=== PATIENT | male | born 1965 | race Hispanic/Latino ===

== ENCOUNTER → 2018-08-12 | Outpatient (CLI) | payer MEDICAID | END | disposition home or self-care (01) | LOC: RAH 12:22 | PROVIDERS: ATTEND Internal Medicine | DX: M25.78 Osteophyte, vertebrae (principal); M54.5 Low back pain | CPT/HCPCS: 72100 ==

== ENCOUNTER 2018-08-29 16:47 | Inpatient (IN) | payer MEDICAID ==
[~2018-08-29] VITALS: Ht 165.1 cm; Wt 62.7 kg
[2018-08-29 18:09] LABS: BASOPHILS % (AUTO) 0.9 % (0.0-5.0); EOSINOPHILS % (AUTO) 12.9 % (0.0-8.0); HEMATOCRIT 36.4 % (42-54); LYMPHOCYTES % (AUTO) 34.1 % (21.0-51.0); MEAN CORPUSCULAR HEMOGLOBIN 35.7 pg (27.0-33.0); MEAN CORPUSCULAR HGB CONC 33.9 g/dL (32.0-36.0); MEAN CORPUSCULAR VOLUME 105.4 fL (79-99); MONOCYTES % (AUTO) 8.8 % (3.0-13.0); NEUTROPHILS % (AUTO) 43.3 % (40.0-77.0); NUCLEATED RED BLOOD CELLS 0.1 % (0.0-0.19); PLATELET COUNT (AUTO) 71 K/uL (130-400); RED BLOOD CELL COUNT(AUTO) 3.46 MIL/uL (4.50-6.20); RED CELL DISTRIBUTION WIDTH 15.1 % (11.0-15.5); WHITE BLOOD COUNT (AUTO) 5.1 K/uL (4.8-10.8)
[2018-08-29 18:22] LABS: CREATININE 0.9 mg/dL (0.5-1.5); POTASSIUM 4.1 mmol/L (3.5-5.1)
[2018-08-29] MEDS ORDERED: LACTULOSE 20 GM/30 ML UDCUP ONE (19:18)
[2018-08-29] MEDS: LACTATED RINGERS 1000ML 1,000 ML IV SCH (21:00)
[2018-08-29] MEDS ORDERED: LACTULOSE 20 GM/30 ML UDCUP PO PRN (21:00)
[2018-08-29] MEDS ORDERED: ACETAMINOPHEN 325 MG TAB PO PRN (21:00)
[2018-08-29] MEDS ORDERED: ONDANSETRON HCL 4 MG/2 ML VIAL IVP PRN (21:00)
[2018-08-30 01:30] VITALS: BP 118/75
[2018-08-30] MEDS ORDERED: LEVE750T51 PO (01:37)
[2018-08-30] MEDS ORDERED: CLOP75TA32 PO (01:37)
[2018-08-30] MEDS ORDERED: ASPI-891 PO (01:37)
[2018-08-30] MEDS ORDERED: ESCI10TA54 PO (01:37)
[2018-08-30 04:00] VITALS: BP 116/70
[2018-08-30 05:28] LABS: HEMATOCRIT 31.7 % (42-54); MEAN CORPUSCULAR HEMOGLOBIN 36.9 pg (27.0-33.0); MEAN CORPUSCULAR HGB CONC 35.3 g/dL (32.0-36.0); MEAN CORPUSCULAR VOLUME 104.7 fL (79-99); NUCLEATED RED BLOOD CELLS 0.1 % (0.0-0.19); PLATELET COUNT (AUTO) 78 K/uL (130-400); RED BLOOD CELL COUNT(AUTO) 3.02 MIL/uL (4.50-6.20); RED CELL DISTRIBUTION WIDTH 14.8 % (11.0-15.5)
[2018-08-30 05:37] LABS: BILIRUBIN,TOTAL 1.7 mg/dL (0.2-1.0); CREATININE 0.8 mg/dL (0.5-1.5); POTASSIUM 3.9 mmol/L (3.5-5.1); TOTAL PROTEIN, SERUM 6.6 g/dL (6.0-8.3)
[2018-08-30 05:47] LABS: BASOPHILS % (MANUAL) 1 % (0-2); EOSINOPHILS % (MANUAL) 9 % (1-6); LYMPHOCYTES % (MANUAL) 32 % (22-44); MAN.DIFF COMMENT-IMPRESSION MANUAL DIFFERENTIAL; MONOCYTES % (MANUAL) 8 % (2-9); SEGMENTED NEUTROPHILS % 50 % (40-70)
[2018-08-30] MEDS ORDERED: LORAZEPAM 2 MG/ML 1 ML VIAL IVP PRN (06:45)
[2018-08-30] MEDS ORDERED: ONDANSETRON HCL 4 MG/2 ML VIAL IV PRN (06:45)
[2018-08-30] MEDS ORDERED: CHLORDIAZEPOXIDE HCL 25 MG CAP PO PRN (06:45)
[2018-08-30] MEDS ORDERED: ACETAMINOPHEN EXTRA STRENGTH 500 MG TABLET PO PRN (06:45)
[2018-08-30] MEDS ORDERED: PROMETHAZINE HCL 25 MG TABLET PO PRN (06:45)
[2018-08-30 08:15] LABS: ALCOHOL, BLOOD < 3 mg/dL (0-10); PHOSPHORUS 3.2 mg/dL (2.5-4.9)
[2018-08-30] MEDS: FOLIC ACID 1 MG TABLET PO SCH (08:48)
[2018-08-30] MEDS: MULTIVITAMIN TABLET PO SCH (08:48)
[2018-08-30] MEDS: THIAMINE HCL 100 MG/ML 2ML VIAL IM SCH (08:48)
[2018-08-30 08:53] VITALS: BP 107/72
[2018-08-30] MEDS ORDERED: POTASSIUM CHLORIDE 20MEQ/100ML 100 ML IV PRN (12:00)
[2018-08-30] MEDS ORDERED: POTASSIUM CHLORIDE 10% ELIXIR 20 MEQ/15 ML UDCUP PO PRN (12:00)
[2018-08-30] MEDS ORDERED: LIDOCAINE HCL-MPF 1% 2ML VIAL IVP PRN (12:00)
[2018-08-30] MEDS ORDERED: POTASSIUM CHLORIDE 20 MEQ ERTAB PO PRN (12:00)
[2018-08-30] MEDS ORDERED: MAGNESIUM 2GM PREMIX 50ML 50 ML IV SCH (12:00)
[2018-08-30 12:19] VITALS: BP 113/75
[2018-08-30] MEDS: LACTULOSE 20 GM/30 ML UDCUP PO SCH ×2 (14:11→21:02)
[2018-08-30] MEDS: LIDOCAINE 5% TOPICAL PATCH TP SCH (15:54)
[2018-08-30 16:49] VITALS: BP 123/75
[2018-08-30 19:00] VITALS: BP 107/63
[2018-08-30] MEDS: LACTATED RINGERS 1000ML 1,000 ML IV SCH (20:56)
[2018-08-30] MEDS: LEVETIRACETAM 500 MG TABLET PO SCH (21:02)
[2018-08-31] VITALS (21 sets, daily range): BP systolic 106–143; BP diastolic 60–91
[2018-08-31] MEDS: LACTULOSE 20 GM/30 ML UDCUP PO SCH ×4 (02:53→18:30)
[2018-08-31] MEDS: LACTATED RINGERS 1000ML 1,000 ML IV SCH ×3 (05:00→22:04)
[2018-08-31 05:03] LABS: BASOPHILS % (AUTO) 1.3 % (0.0-5.0); EOSINOPHILS % (AUTO) 12.4 % (0.0-8.0); HEMATOCRIT 32.7 % (42-54); LYMPHOCYTES % (AUTO) 34.2 % (21.0-51.0); MEAN CORPUSCULAR HEMOGLOBIN 35.6 pg (27.0-33.0); MEAN CORPUSCULAR HGB CONC 33.8 g/dL (32.0-36.0); MEAN CORPUSCULAR VOLUME 105.1 fL (79-99); MONOCYTES % (AUTO) 10.6 % (3.0-13.0); NEUTROPHILS % (AUTO) 41.5 % (40.0-77.0); NUCLEATED RED BLOOD CELLS 0.1 % (0.0-0.19); PLATELET COUNT (AUTO) 70 K/uL (130-400); RED BLOOD CELL COUNT(AUTO) 3.11 MIL/uL (4.50-6.20); RED CELL DISTRIBUTION WIDTH 14.9 % (11.0-15.5); WHITE BLOOD COUNT (AUTO) 5.3 K/uL (4.8-10.8)
[2018-08-31 05:17] LABS: CREATININE 0.9 mg/dL (0.5-1.5); MAGNESIUM 1.8 mg/dL (1.80-2.40); POTASSIUM 3.8 mmol/L (3.5-5.1)
[2018-08-31] MEDS: LIDOCAINE 5% TOPICAL PATCH TP SCH (09:00)
[2018-08-31] MEDS: MULTIVITAMIN TABLET PO SCH (09:00)
[2018-08-31] MEDS: FOLIC ACID 1 MG TABLET PO SCH (09:00)
[2018-08-31] MEDS ORDERED: KETOROLAC TROMETHAMINE 15MG/ML IM PRN (10:00)
[2018-08-31] MEDS: CITALOPRAM 20 MG TABLET PO SCH (10:08)
[2018-08-31] MEDS: M.V.I. IV [ADULT] 10 ML, FOLIC ACID 1 MG, THIAMINE HCL 100 MG in SODIUM CHLORIDE 0.9% 1... IV SCH (10:31)
[2018-08-31] MEDS: THIAMINE HCL 100 MG/ML 2ML VIAL IM SCH (10:31)
[2018-08-31 10:33] LABS: INR 1.23 (0.85-1.15); PARTIAL THROMBOPLASTIN TIME 30.3 SEC (26.3-35.5); PROTHROMBIN TIME 12.9 SEC (9.6-11.6)
[2018-08-31] MEDS: LEVETIRACETAM 500 MG TABLET PO SCH ×2 (10:36→22:04)
[2018-08-31] MEDS ORDERED: SODIUM CHLORIDE 0.9% 1000ML 1,000 ML IV ONE (11:56)
[2018-08-31] MEDS ORDERED: PROPOFOL 10 MG/ML 20ML VIAL IV ONE ×2 (14:05)
[2018-08-31] MEDS ORDERED: PEG 3350/NA SULF,BICARB,CL/KCL 4000 ML SOLN PO ONE (18:30)
[2018-08-31] MEDS ORDERED: MAGNESIUM CITRATE 296 ML SOLUTION PO ONE (18:30)
[2018-09-01] VITALS (25 sets, daily range): BP systolic 85–136; BP diastolic 48–89
[2018-09-01] MEDS: LACTULOSE 20 GM/30 ML UDCUP PO SCH ×4 (02:50→20:47)
[2018-09-01 04:59] LABS: BASOPHILS % (AUTO) 1.5 % (0.0-5.0); EOSINOPHILS % (AUTO) 12.6 % (0.0-8.0); LYMPHOCYTES % (AUTO) 33.8 % (21.0-51.0); MEAN CORPUSCULAR HEMOGLOBIN 37.1 pg (27.0-33.0); MEAN CORPUSCULAR HGB CONC 35.6 g/dL (32.0-36.0); MEAN CORPUSCULAR VOLUME 104.2 fL (79-99); MONOCYTES % (AUTO) 9.1 % (3.0-13.0); NUCLEATED RED BLOOD CELLS 0.2 % (0.0-0.19); PLATELET COUNT (AUTO) 85 K/uL (130-400); RED BLOOD CELL COUNT(AUTO) 2.97 MIL/uL (4.50-6.20); RED CELL DISTRIBUTION WIDTH 14.6 % (11.0-15.5); WHITE BLOOD COUNT (AUTO) 5.5 K/uL (4.8-10.8)
[2018-09-01] MEDS: LACTATED RINGERS 1000ML 1,000 ML IV SCH (05:08)
[2018-09-01 05:11] LABS: CREATININE 0.7 mg/dL (0.5-1.5); POTASSIUM 3.5 mmol/L (3.5-5.1)
[2018-09-01] MEDS: THIAMINE HCL 100 MG/ML 2ML VIAL IM SCH (09:59)
[2018-09-01] MEDS: PANTOPRAZOLE SODIUM 40 MG TABLET.DR PO SCH (10:02)
[2018-09-01] MEDS: FOLIC ACID 1 MG TABLET PO SCH (10:02)
[2018-09-01] MEDS: MULTIVITAMIN TABLET PO SCH (10:03)
[2018-09-01] MEDS: LEVETIRACETAM 500 MG TABLET PO SCH ×2 (10:03→20:47)
[2018-09-01] MEDS: CITALOPRAM 20 MG TABLET PO SCH (10:04)
[2018-09-01] MEDS: LIDOCAINE 5% TOPICAL PATCH TP SCH (10:05)
[2018-09-01] MEDS: M.V.I. IV [ADULT] 10 ML, FOLIC ACID 1 MG, THIAMINE HCL 100 MG in SODIUM CHLORIDE 0.9% 1... IV SCH (10:57)
[2018-09-01] MEDS ORDERED: SODIUM CHLORIDE 0.9% 1000ML 1,000 ML IV ONE (17:27)
[2018-09-01] MEDS ORDERED: PROPOFOL 10 MG/ML 20ML VIAL IV ONE (19:27)
[2018-09-02 00:25] VITALS: BP 120/76
[2018-09-02 01:25] VITALS: BP 114/79
[2018-09-02] MEDS: LACTULOSE 20 GM/30 ML UDCUP PO SCH ×2 (02:55→12:59)
[2018-09-02 03:05] VITALS: BP 134/76
[2018-09-02 07:00] VITALS: BP 108/73
[2018-09-02] MEDS: CALCITONIN 3.7 ML AEROSOL NS SCH ×2 (09:00→13:00)
[2018-09-02] MEDS: CITALOPRAM 20 MG TABLET PO SCH (09:22)
[2018-09-02] MEDS: MULTIVITAMIN TABLET PO SCH (09:22)
[2018-09-02] MEDS: LEVETIRACETAM 500 MG TABLET PO SCH (09:22)
[2018-09-02] MEDS: PANTOPRAZOLE SODIUM 40 MG TABLET.DR PO SCH (09:22)
[2018-09-02] MEDS: LIDOCAINE 5% TOPICAL PATCH TP SCH (09:23)
[2018-09-02 11:36] VITALS: BP 110/70
[2018-09-02] MEDS: M.V.I. IV [ADULT] 10 ML, FOLIC ACID 1 MG, THIAMINE HCL 100 MG in SODIUM CHLORIDE 0.9% 1... IV SCH (12:57)
[2018-09-02 15:00] VITALS: BP 122/79
== END 2018-09-02 16:45 | disposition home or self-care (01) | DRG 279 ==
LOC: EDH 16:47 → EDHIP 16:48 → 3AH 08-30 01:23
PROVIDERS: ADMIT Hospitalist; ATTEND Hospitalist
PROC: 0DJ08ZZ Inspection of Upper Intestinal Tract, Via Natural or Artificial Opening Endoscopic (ICD-10-PCS; 2018-08-31)
PROC: 0DBH8ZZ Excision of Cecum, Via Natural or Artificial Opening Endoscopic (ICD-10-PCS; principal; 2018-09-01)
DX: K72.90 Hepatic failure, unspecified without coma (principal); D69.6 Thrombocytopenia, unspecified; D89.9 Disorder involving the immune mechanism, unspecified; I85.00 Esophageal varices without bleeding; E44.1 Mild protein-calorie malnutrition; M48.56XA Collapsed vertebra, not elsewhere classified, lumbar region, initial encounter for fracture; R18.8 Other ascites; D64.9 Anemia, unspecified; G40.909 Epilepsy, unspecified, not intractable, without status epilepticus; K74.60 Unspecified cirrhosis of liver; M47.812 Spondylosis without myelopathy or radiculopathy, cervical region; R29.6 Repeated falls; K29.00 Acute gastritis without bleeding; B19.20 Unspecified viral hepatitis C without hepatic coma; F10.10 Alcohol abuse, uncomplicated; M47.816 Spondylosis without myelopathy or radiculopathy, lumbar region; K76.0 Fatty (change of) liver, not elsewhere classified; K74.0 Hepatic fibrosis; K64.0 First degree hemorrhoids; D12.0 Benign neoplasm of cecum; D50.9 Iron deficiency anemia, unspecified; K76.6 Portal hypertension; K31.89 Other diseases of stomach and duodenum; Z86.73 Personal history of transient ischemic attack (TIA), and cerebral infarction without residual deficits; Z82.49 Family history of ischemic heart disease and other diseases of the circulatory system
CPT/HCPCS: 36415; 43244; 45380; 70450; 70551; 71045; 72125; 72128; 72131; 76705; 80048; 80053; 80177; 82140; 82270; 82607; 83735; 84100; 84484; 85025; 85610; 85730; 88305; 93005; 97039; G0480; J2704; J3411; J3475; J3490; J7030; J7120

== ENCOUNTER 2019-07-21 14:33 | Emergency (ER) | payer MEDICAID ==
[~2019-07-21 14:33] MED LIST: ASPI-891 PO; CLOP75TA32 PO; ESCI10TA54 PO; LEVE750T66 PO
[2019-07-21 15:21] LABS: BASOPHILS % (AUTO) 0.7 % (0.0-5.0); EOSINOPHILS % (AUTO) 9.2 % (0.0-8.0); HEMATOCRIT 36.6 % (42-54); MEAN CORPUSCULAR HEMOGLOBIN 35.2 pg (27.0-33.0); MEAN CORPUSCULAR HGB CONC 34.9 g/dL (32.0-36.0); MEAN CORPUSCULAR VOLUME 100.7 fL (79-99); MONOCYTES % (AUTO) 9.3 % (3.0-13.0); NEUTROPHILS % (AUTO) 49.8 % (40.0-77.0); NUCLEATED RED BLOOD CELLS 0.1 % (0.0-0.19); PLATELET COUNT (AUTO) 119 K/uL (130-400); RED BLOOD CELL COUNT(AUTO) 3.63 MIL/uL (4.50-6.20); RED CELL DISTRIBUTION WIDTH 13.7 % (11.0-15.5); WHITE BLOOD COUNT (AUTO) 4.3 K/uL (4.8-10.8)
[2019-07-21 15:33] LABS: INR 1.19 (0.85-1.15); PARTIAL THROMBOPLASTIN TIME 27.5 SEC (26.3-35.5); PROTHROMBIN TIME 12.5 SEC (9.6-11.6)
[2019-07-21 15:44] LABS: CREATININE 0.9 mg/dL (0.5-1.5); POTASSIUM 3.8 mmol/L (3.5-5.1)
[2019-07-21] MEDS ORDERED: ONDANSETRON HCL 4 MG/2 ML VIAL ONE (15:44)
[2019-07-21] MEDS ORDERED: DICYCLOMINE HCL 10 MG/ML 2ML AMP IM ONE (15:44)
[2019-07-21] MEDS ORDERED: FUROSEMIDE 10 MG/ML 2ML VIAL ONE (15:44)
[2019-07-21] MEDS ORDERED: MORPHINE SULFATE 2 MG/ML 1ML SYG ONE (15:44)
[2019-07-21 15:45] LABS: ALBUMIN 2.5 g/dL (3.5-5.0); BILIRUBIN,TOTAL 1.7 mg/dL (0.2-1.0); TOTAL PROTEIN, SERUM 6.8 g/dL (6.0-8.3)
[2019-07-21 16:49] LABS: PLATELET MORPHOLOGY COMMENT SLIGHTLY DECREASED
== END 2019-07-21 16:22 | disposition home or self-care (01) ==
LOC: EDH 14:33
DX: R18.8 Other ascites (principal); F10.20 Alcohol dependence, uncomplicated; Z87.891 Personal history of nicotine dependence
CPT/HCPCS: 36415; 80053; 82140; 85025; 85610; 85730; 96372; 96374; 96375; 99284; J0500; J1940; J2405

== ENCOUNTER → 2019-07-24 | Outpatient (CLI) | payer MEDICAID ==
[~2019-07-24] MED LIST changes: +ALBUMIN (HUMAN) 25% 200 ML IV ONE
[2019-07-24 08:52] LABS: INR 1.2 (0.85-1.15); PARTIAL THROMBOPLASTIN TIME 27.3 SEC (26.3-35.5); PROTHROMBIN TIME 12.6 SEC (9.6-11.6)
--- NOTE | 2019-07-24 09:45 | NUR ---
U/S GD PARACENTESIS PROCEDURE PERFORMED BY DR Aaliyah FONTENOT. PUNCTURE SITE RLQ AND PATIENT TOLERATED PROCEDURE WELL. TOTAL REMOVED 7 LITERS OF CLOUDY YELLOW FLUID. ALBUMIN 25% 50 GRAMS IV GIVEN DURING PROCEDURE. SPECIMEN SENT TO LAB. END OF PROCEDURE AT 0915. CATHETER REMOVED AND DRESSING APPLIED. NO BLEEDING NOTED. DISCHARGE INSTRUCTIONS GIVEN TO PATIENT AND VERBALIZED UNDERSTANDING. DISCHARGED VIA AMBLATION AT 0945. AAO X3 WITH NO C/O PAIN.
[2019-07-24 14:31] LABS: AMYLASE,BODY FLUID 15 U/L; TRIGLYCERIDES,BODY FLUID 24 mg/dL
[2019-07-24 17:20] LABS: APPEARANCE BODY FLUID CLEAR (CLEAR); COLOR,BODY FLUID LT YELLOW (LT YELLOW); SPECIMENTYPE,BODY FLUID ASCITES; TOTAL VOLUME,BODY FLUID 7000 mL
[2019-07-24 17:21] LABS: BODY FLUID RBC 20 /cu. mm.; BODY FLUID WBC 35 /cu. mm.
[2019-07-24 18:37] LABS: BF EOSINOPHIL 1 %; BF LYMPHOCYTE 18 %; BF MONOCYTE 8 %; BF OTHER CELLS 5
== END | disposition home or self-care (01) ==
LOC: RAH 07:47
PROVIDERS: ATTEND Internal Medicine
DX: R18.8 Other ascites (principal); Z79.82 Long term (current) use of aspirin; Z79.899 Other long term (current) drug therapy; Z72.89 Other problems related to lifestyle
CPT/HCPCS: 36415; 49083; 82040; 82042; 82150; 84157; 84478; 85610; 85730; 87071; 87116; 87205; 87206; 88108; 88305; 89051; 96365; A4215; P9046

== ENCOUNTER → 2019-07-29 | Outpatient (CLI) | payer MEDICAID ==
[~2019-07-29] MED LIST changes: -ALBUMIN (HUMAN) 25% 200 ML IV ONE
== END | disposition home or self-care (01) ==
LOC: RAH 09:25
PROVIDERS: ATTEND Internal Medicine Gastroenterology
DX: K74.60 Unspecified cirrhosis of liver (principal); R16.1 Splenomegaly, not elsewhere classified; R18.8 Other ascites
CPT/HCPCS: 76700; 93975

== ENCOUNTER → 2019-08-24 | Outpatient (CLI) | payer MEDICAID ==
[~2019-08-24] VITALS: Ht 170.2 cm; Wt 59.9 kg
[~2019-08-24] MED LIST changes: +ALBUMIN (HUMAN) 25% 200 ML IV ONE; +ALBUMIN (HUMAN) 25% 200 ML IV SCH
--- NOTE | 2019-08-24 09:30 | NUR ---
U/S GD PARACENTESIS PROCEDURE PERFORMED BY DR Enrique GIBBS. PUNCTURE SITE LLQ AND PATIENT TOLERATED PROCEDURE WELL. TOTAL REMOVED 8.3 LITERS OF CLOUDY YELLOW FLUID. ALBUMIN 25% 50 GRAMS IV GIVEN DURING PROCEDURE. SPECIMEN SENT TO LAB. END OF PROCEDURE AT 0850. CATHETER REMOVED AND DRESSING APPLIED. NO BLEEDING NOTED. DISCHARGE INSTRUCTIONS GIVEN TO PATIENT AND VERBALIZED UNDERSTANDING. DISCHARGED VIA AMBULATION AT 0930. AAO X3 WITH NO C/O PAIN.
[2019-08-24 13:40] LABS: APPEARANCE BODY FLUID CLEAR (CLEAR); BODY FLUID WBC 47 /cu. mm.; COLOR,BODY FLUID YELLOW (LT YELLOW); SPECIMENTYPE,BODY FLUID ASCITES; TOTAL VOLUME,BODY FLUID 8200 mL
[2019-08-24 13:41] LABS: BODY FLUID RBC 11 /cu. mm.
[2019-08-24 13:51] LABS: BF LYMPHOCYTE 35 %; BF MESOTHELIAL 26 %; BF MONOCYTE 22 %
== END ==
LOC: RAH 08:00
PROVIDERS: ATTEND Internal Medicine
DX: R18.8 Other ascites (principal); K74.60 Unspecified cirrhosis of liver; Z79.82 Long term (current) use of aspirin; Z79.899 Other long term (current) drug therapy; Z72.89 Other problems related to lifestyle
CPT/HCPCS: 49083; 87071; 87205; 89051; 96365; A4215; P9046

== ENCOUNTER → 2019-09-17 | Outpatient (CLI) | payer MEDICAID ==
[~2019-09-17] MED LIST changes: -ALBUMIN (HUMAN) 25% 200 ML IV SCH
--- NOTE | 2019-09-17 09:30 | NUR ---
U/S GD PARACENTESIS PROCEDURE PERFORMED BY DR Diane BANAD. PUNCTURE SITE LLQ AND PATIENT TOLERATED PROCEDURE WELL. TOTAL REMOVED 7 LITERS OF CLOUDY YELLOW FLUID. ALBUMIN 25% 50 GRAMS IV GIVEN DURING PROCEDURE. SPECIMEN SENT TO LAB. END OF PROCEDURE AT 0900. CATHETER REMOVED AND DRESSING APPLIED. NO BLEEDING NOTED. DISCHARGE INSTRUCTIONS GIVEN TO PATIENT AND VERBALIZED UNDERSTANDING. DISCHARGED VIA AMBULATION AT 0930. AAO X3 WITH NO C/O PAIN.
[2019-09-17 13:46] LABS: APPEARANCE BODY FLUID CLEAR (CLEAR); BODY FLUID WBC 50 /cu. mm.; COLOR,BODY FLUID YELLOW (LT YELLOW); SPECIMENTYPE,BODY FLUID ASCITES; TOTAL VOLUME,BODY FLUID 7000 mL
[2019-09-17 13:47] LABS: BODY FLUID RBC 87 /cu. mm.
[2019-09-17 13:52] LABS: BF EOSINOPHIL 1 %; BF LYMPHOCYTE 19 %; BF MESOTHELIAL 57 %; BF MONOCYTE 16 %
== END ==
LOC: RAH 07:36
PROVIDERS: ATTEND Internal Medicine
DX: R18.8 Other ascites (principal); K74.60 Unspecified cirrhosis of liver; Z79.82 Long term (current) use of aspirin; Z79.899 Other long term (current) drug therapy; Z72.89 Other problems related to lifestyle
CPT/HCPCS: 49083; 87071; 87205; 89051; 96365; A4215; P9046

== ENCOUNTER → 2019-10-07 | Outpatient (CLI) | payer MEDICAID ==
[~2019-10-07] MED LIST changes: -ALBUMIN (HUMAN) 25% 200 ML IV ONE; +ALBUMIN (HUMAN) 25% 200 ML IV SCH
--- NOTE | 2019-10-07 08:50 | NUR ---
U/S GD PARACENTESIS PROCEDURE PERFORMED BY DR. ACOSTA. PUNCTURE SITE RIGHT LOWER QUADRANT OF ABDOMEN AND PATIENT TOLERATED PROCEDURE WELL. TOTAL REMOVED 6.8 LITERS OF CLOUDY YELLOW ASCITES FLUID. END OF PROCEDURE AT 0930. CATHETER REMOVED AND DRESSING APPLIED. NO BLEEDING NOTED. ALBUMIN 25% 50 GRAMS GIVEN DURING PROCEDURE PER [facility] [place]. DISCHARGE INSTRUCTIONS GIVEN TO PATIENT. PATIENT VERBALIZED UNDERSTANDING. PT DISCHARGED VIA W/C, STABLE, AAO X3 WITH NO C/O PAIN. SPECIMEN SENT TO LAB.
[2019-10-07 08:51] LABS: INR 1.19 (0.85-1.15); PARTIAL THROMBOPLASTIN TIME 28.4 SEC (26.3-35.5); PROTHROMBIN TIME 12.4 SEC (9.6-11.6)
[2019-10-07 16:44] LABS: APPEARANCE BODY FLUID CLEAR (CLEAR); BODY FLUID WBC 27 /cu. mm.; COLOR,BODY FLUID YELLOW (LT YELLOW); SPECIMENTYPE,BODY FLUID ASCITES; TOTAL VOLUME,BODY FLUID 6800 mL
[2019-10-07 16:45] LABS: BODY FLUID RBC 80 /cu. mm.
[2019-10-07 17:10] LABS: BF EOSINOPHIL 4 %; BF LYMPHOCYTE 45 %; BF MESOTHELIAL 20 %; BF MONOCYTE 15 %
== END | disposition home or self-care (01) ==
LOC: RAH 07:22
PROVIDERS: ATTEND Internal Medicine
DX: R18.8 Other ascites (principal); K74.60 Unspecified cirrhosis of liver; Z79.82 Long term (current) use of aspirin; Z79.899 Other long term (current) drug therapy
CPT/HCPCS: 36415; 49083; 85610; 85730; 87071; 87205; 89051; 96365; A4215; P9046

== ENCOUNTER → 2019-10-30 | Outpatient (CLI) | payer MEDICAID ==
[~2019-10-30] MED LIST changes: +ALBUMIN (HUMAN) 25% 200 ML IV PRN; -ALBUMIN (HUMAN) 25% 200 ML IV SCH
--- NOTE | 2019-10-30 09:00 | NUR ---
U/S GD PARACENTESIS PROCEDURE PERFORMED BY DR. OVIEDO. PUNCTURE SITE LEFT LOWER QUADRANT OF ABDOMEN AND PATIENT TOLERATED PROCEDURE WELL. TOTAL REMOVED 6 LITERS OF CLOUDY YELLOW ASCITES FLUID. END OF PROCEDURE AT 0830. CATHETER REMOVED AND DRESSING APPLIED. NO BLEEDING NOTED. ALBUMIN 25% 50 GRAMS GIVEN DURING PROCEDURE PER [facility] [place] ALBUMIN PROTOCOL. DISCHARGE INSTRUCTIONS GIVEN TO PATIENT. PATIENT VERBALIZED UNDERSTANDING. PT DISCHARGED VIA W/C, STABLE, AAO X3 WITH C/O ABDOMINAL CRAMPING. WARM COMPRESS APPLIED AND SPECIMEN SENT TO LAB.
[2019-10-30 14:12] LABS: BF LYMPHOCYTE 33 %; BF MESOTHELIAL 34 %; BF MONOCYTE 19 %
[2019-10-30 14:17] LABS: APPEARANCE BODY FLUID CLEAR (CLEAR); BODY FLUID RBC 235 /cu. mm.; BODY FLUID WBC 36 /cu. mm.; COLOR,BODY FLUID YELLOW (LT YELLOW); SPECIMENTYPE,BODY FLUID ASCITES; TOTAL VOLUME,BODY FLUID 6000 mL
== END ==
LOC: RAH 07:52
PROVIDERS: ATTEND Internal Medicine
DX: R18.8 Other ascites (principal); K74.60 Unspecified cirrhosis of liver; Z79.82 Long term (current) use of aspirin; Z79.899 Other long term (current) drug therapy; Z72.89 Other problems related to lifestyle
CPT/HCPCS: 49083; 87071; 87205; 89051; 96365; A4215; P9046

== ENCOUNTER → 2019-11-30 | Outpatient (CLI) | payer MEDICAID ==
[~2019-11-30] MED LIST changes: -ALBUMIN (HUMAN) 25% 200 ML IV PRN; +CEPH-577 PO; +CHOL100046 PO; +CITA-107 PO; +DICY10CA13 PO; +LACT20PA6 PO; +LEVE750T10 PO; +MIDO10TA PO; +PROP10TA10 PO; +SPIR25TA6 PO; +VITA1CAP85 PO
== END | disposition home or self-care (01) ==
LOC: SHCH 13:57
PROVIDERS: ATTEND Internal Medicine Cardiovascular Disease
DX: R00.1 Bradycardia, unspecified (principal)
CPT/HCPCS: 93306; 93356

== ENCOUNTER 2020-01-05 08:22 | Day surgery (SDC) | payer MEDICAID ==
[~2020-01-05] VITALS: Ht 165.1 cm; Wt 54.9 kg
[2020-01-05] VITALS (11 sets, daily range): BP systolic 71–129; BP diastolic 52–75
[~2020-01-05 08:22] MED LIST changes: -ASPI-891 PO; -CEPH-577 PO; -ESCI10TA54 PO; -LEVE750T66 PO; -PROP10TA10 PO; +SODIUM CHLORIDE 0.9% 1000ML 1,000 ML IV ONE; -SPIR25TA6 PO
[2020-01-05] MEDS ORDERED: PROPOFOL 10 MG/ML 20ML VIAL IV ONE (10:58)
--- NOTE | 2020-01-05 11:15 | NUR ---
PT NOT WAKING UP, LOW BP. SLADE ESTRADA NOTIFIED, ORDERS GIVEN FOR EPHEDRINE SULFATE. SLADE WOOTEN TO ASSIST WITH PT, ORDERS GIVEN FROM SLADE WOOTEN TO GIVE NS BOLUS, 300ML. Addendum: 01/05/20 at 1141 by FANI WELLS RN RN Amended: Links added.
[2020-01-05] MEDS ORDERED: EPHEDRINE SULFATE 50 MG/ML AMPULE ONE (11:20)
== END 2020-01-05 11:55 | disposition home or self-care (01) ==
LOC: ENDO 08:22 → DAH 08:22 → ENDO 11:55
PROVIDERS: ATTEND Internal Medicine Gastroenterology
DX: K21.9 Gastro-esophageal reflux disease without esophagitis (principal); I85.10 Secondary esophageal varices without bleeding; K74.69 Other cirrhosis of liver; K31.89 Other diseases of stomach and duodenum; R18.8 Other ascites; B18.2 Chronic viral hepatitis C; K44.0 Diaphragmatic hernia with obstruction, without gangrene; K42.9 Umbilical hernia without obstruction or gangrene; Z86.73 Personal history of transient ischemic attack (TIA), and cerebral infarction without residual deficits; Z86.010 Personal history of colon polyps; F31.9 Bipolar disorder, unspecified; Z79.899 Other long term (current) drug therapy; Z98.890 Other specified postprocedural states
CPT/HCPCS: 43239; A4215; A4221; A4222; A4223; A4606; A4620; A4663; J2704; J3490; J7030

== ENCOUNTER → 2020-03-09 | Outpatient (CLI) | payer MEDICAID ==
[~2020-03-09] MED LIST changes: +ALBUMIN (HUMAN) 25% 200 ML IV ONE; -SODIUM CHLORIDE 0.9% 1000ML 1,000 ML IV ONE
[2020-03-09 10:20] LABS: INR 1.14 (0.85-1.15); PARTIAL THROMBOPLASTIN TIME 27.7 SEC (26.3-35.5); PROTHROMBIN TIME 12.2 SEC (9.6-11.6)
--- NOTE | 2020-03-09 10:30 | NUR ---
PROCEDURE PATIENT SCHEDULED FOR U/S GD PARACENTESIS. IMAGING OF THE ABDOMEN DONE AND REVIEWED BY DR Lazaro MAHONEY. NO FLUID SEEN AND PROCEDURE CANCELED. PROCEDURE OUTCOME EXPLAINED TO PATENT AND VERBALIZED UNDERSTANDING.
== END ==
LOC: RAH 09:38
PROVIDERS: ATTEND Internal Medicine
DX: K70.31 Alcoholic cirrhosis of liver with ascites (principal); E46 Unspecified protein-calorie malnutrition; R64 Cachexia; R63.0 Anorexia; K42.9 Umbilical hernia without obstruction or gangrene; D69.6 Thrombocytopenia, unspecified; R35.1 Nocturia; Z79.899 Other long term (current) drug therapy
CPT/HCPCS: 36415; 76705; 85610; 85730; P9046

== ENCOUNTER → 2020-05-12 | Outpatient (CLI) | payer MEDICAID ==
[~2020-05-12] MED LIST changes: -ALBUMIN (HUMAN) 25% 200 ML IV ONE
== END | disposition home or self-care (01) ==
LOC: RAH 08:19
PROVIDERS: ATTEND Internal Medicine Gastroenterology
DX: K74.60 Unspecified cirrhosis of liver (principal)
CPT/HCPCS: 76700; 93975

== ENCOUNTER → 2020-05-16 | Outpatient (CLI) | payer MEDICAID ==
[~2020-05-16] MED LIST changes: +ALBUMIN (HUMAN) 25% 200 ML IV ONE; -CHOL100046 PO; -CITA-107 PO; -CLOP75TA32 PO; -DICY10CA13 PO; -LACT20PA6 PO; -LEVE750T10 PO; -MIDO10TA PO; -VITA1CAP85 PO
--- NOTE | 2020-05-16 08:45 | NUR ---
US GUIDED PARACENTESIS ORDERED. NOT DONE US OF ALL 4 QUADRANTS OF THE ABDOMEN PERFORMED BY CHEY ESCOBEDO. DR. TORRES REVIEWED THE IMAGES AND CONFIRMED, NOT ENOUGH FLUID TO SAFELY PERFORM PROCEDURE. INFORMED PT OF RESULTS. PT DISCHARGED HOME AMBULATORY, STABLE, AAO X 3, NO C/O PAIN.
--- NOTE | 2020-05-16 14:32 | NUR ---
RE: U/S GD PARACENTESIS PATIENT IN CLOSE CONTACT WITH A FAMILY MEMBER THAT TESTED POSITIVE FOR COVID-19. PATIENT IN DEPARTMENT FOR OUTPATIENT PARACENTESIS. PATIENT HAS NO SYMPTOMS. EXAM DONE AND PATIENT DISCHARGED HOME. Gamal CASH RN NOTIFIED OF PATIENT CONTACT WITH COVID-19. Addendum: 05/16/20 at 1435 by SHARITA BUSH RN RN Amended: Links added.
== END | disposition home or self-care (01) ==
LOC: RAH 07:29
PROVIDERS: ATTEND Internal Medicine
DX: R18.8 Other ascites (principal)

== ENCOUNTER → 2020-05-23 | Outpatient (CLI) | payer MEDICAID ==
[~2020-05-23] MED LIST changes: -ALBUMIN (HUMAN) 25% 200 ML IV ONE; +CHOL100046 PO; +CITA-107 PO; +CLOP75TA32 PO; +DICY10CA13 PO; +IOHEXOL-350 50ML VIAL IV ONE; +LACT20PA6 PO; +LEVE750T10 PO; +MIDO10TA PO; +VITA1CAP85 PO
== END | disposition home or self-care (01) ==
LOC: RAH 14:19
PROVIDERS: ATTEND Internal Medicine
DX: J43.2 Centrilobular emphysema (principal); J90 Pleural effusion, not elsewhere classified; J98.11 Atelectasis; J92.9 Pleural plaque without asbestos; K44.9 Diaphragmatic hernia without obstruction or gangrene; K74.60 Unspecified cirrhosis of liver
CPT/HCPCS: 71260; 74018; Q9967

== ENCOUNTER → 2020-06-24 | Outpatient (CLI) | payer MEDICAID ==
[~2020-06-24] MED LIST changes: -IOHEXOL-350 50ML VIAL IV ONE
== END | disposition home or self-care (01) ==
LOC: RAH 07:59
PROVIDERS: ATTEND Internal Medicine
DX: R18.8 Other ascites (principal); R14.0 Abdominal distension (gaseous); K59.00 Constipation, unspecified
CPT/HCPCS: 76700

== ENCOUNTER → 2020-07-06 | Outpatient (CLI) | payer MEDICAID | END | disposition home or self-care (01) | LOC: OIH 09:45 | PROVIDERS: ATTEND Internal Medicine Gastroenterology | DX: R10.30 Lower abdominal pain, unspecified (principal) | CPT/HCPCS: 74018 ==

== ENCOUNTER → 2020-11-14 | Outpatient (CLI) | payer MEDICAID | END | disposition home or self-care (01) | LOC: RAH 08:01 | PROVIDERS: ATTEND Internal Medicine Gastroenterology | DX: K74.60 Unspecified cirrhosis of liver (principal); R18.8 Other ascites | CPT/HCPCS: 76700; 93975 ==

== ENCOUNTER → 2021-01-11 | Outpatient (CLI) | payer MEDICAID | END | disposition home or self-care (01) | LOC: RAH 07:47 | PROVIDERS: ATTEND Internal Medicine | DX: J40 Bronchitis, not specified as acute or chronic (principal); R06.00 Dyspnea, unspecified; M25.50 Pain in unspecified joint | CPT/HCPCS: 71046 ==

== ENCOUNTER → 2021-01-13 | Outpatient (CLI) | payer MEDICAID | END | disposition home or self-care (01) | LOC: RAH 10:58 | PROVIDERS: ATTEND Internal Medicine | DX: I70.203 Unspecified atherosclerosis of native arteries of extremities, bilateral legs (principal); R25.2 Cramp and spasm | CPT/HCPCS: 93925 ==

== ENCOUNTER 2021-02-16 09:38 | Observation (INO) | payer MEDICAID ==
[~2021-02-16] VITALS: Ht 165.1 cm; Wt 77.1 kg
[2021-02-16 10:19] LABS: BASOPHILS % (AUTO) 0.3 % (0.0-5.0); EOSINOPHILS % (AUTO) 2.5 % (0.0-8.0); LYMPHOCYTES % (AUTO) 18.4 % (21.0-51.0); MEAN CORPUSCULAR HEMOGLOBIN 32.7 pg (27.0-33.0); MEAN CORPUSCULAR HGB CONC 33.6 g/dL (32.0-36.0); MEAN CORPUSCULAR VOLUME 97.3 fL (79-99); MONOCYTES % (AUTO) 7.5 % (3.0-13.0); PLATELET COUNT (AUTO) 46 K/uL (130-400); RED CELL DISTRIBUTION WIDTH 13.7 % (11.0-15.5); WHITE BLOOD COUNT (AUTO) 3.2 K/uL (4.8-10.8)
[2021-02-16 10:31] LABS: APPEARANCE,URINE Clear (CLEAR); BILIRUBIN,URINE Small (NEGATIVE); COLOR,URINE Dark Yellow (YELLOW); GLUCOSE, URINE (UA) Negative (NEGATIVE); KETONES,URINE Negative (NEGATIVE); LEUKOCYTE ESTERASE ,URINE Trace (NEGATIVE); NITRATE,URINE Negative (NEGATIVE); OCCULT BLOOD,URINE Negative (NEGATIVE); PH,URINE 6.5 (5.0-8.0); PROTEIN,URINE Negative (NEGATIVE)
[2021-02-16 10:32] LABS: CREATININE 0.9 mg/dL (0.5-1.5); POTASSIUM 3.5 mmol/L (3.5-5.1)
[2021-02-16 10:34] LABS: ALBUMIN 3.2 g/dL (3.5-5.0); TOTAL PROTEIN, SERUM 7.8 g/dL (6.0-8.3)
[2021-02-16 10:50] LABS: BACTERIA,URINE Few /HPF (None Seen); RBC,URINE None Seen /HPF (0-1); SQUAMOUS EPITHELIAL CELL,UR None Seen /HPF (0-2)
[2021-02-16] MEDS ORDERED: LORAZEPAM 2 MG/ML 1 ML VIAL ONE (11:37)
[2021-02-16 11:41] LABS: INR 1.15 (0.85-1.15); PROTHROMBIN TIME 12.4 SEC (9.6-11.6)
[2021-02-16 11:43] LABS: PARTIAL THROMBOPLASTIN TIME 27.6 SEC (26.3-35.5)
[2021-02-16] MEDS: FUROSEMIDE 40MG VIAL IV SCH (13:15)
[2021-02-16] MEDS ORDERED: PHARMACY COMMUNICATION MISC PRN (13:15)
[2021-02-16] MEDS: LACTULOSE 20 GM/30 ML UDCUP PO SCH ×2 (13:15→20:02)
[2021-02-16] MEDS ORDERED: LORAZEPAM 2 MG/ML 1 ML VIAL IVP PRN (13:15)
[2021-02-16] MEDS ORDERED: CHLORDIAZEPOXIDE HCL 25 MG CAP PO PRN (13:15)
[2021-02-16] MEDS: CEFTRIAXONE 1G VIAL IVP SCH (13:15)
[2021-02-16] MEDS ORDERED: ONDANSETRON 4MG INJ IV PRN (13:30)
[2021-02-16] MEDS ORDERED: NITROGLYCERIN 0.4 MG SL TAB SL PRN (13:30)
[2021-02-16] MEDS ORDERED: LACTULOSE 20 GM/30 ML UDCUP PO PRN (13:30)
[2021-02-16] MEDS ORDERED: CEFTRIAXONE 1G VIAL ONE (13:38)
[2021-02-16] MEDS ORDERED: LACTULOSE 20 GM/30 ML UDCUP ONE (13:38)
[2021-02-16] MEDS ORDERED: FUROSEMIDE 40MG VIAL ONE (13:38)
[2021-02-16 13:51] LABS: MAGNESIUM 1.9 mg/dL (1.80-2.40); PHOSPHORUS 2.7 mg/dL (2.5-4.9)
[2021-02-16 14:09] LABS: AMPHET/METH SCREEN,URINE NEGATIVE (NEGATIVE); BARBITURATE SCREEN, URINE NEGATIVE (NEGATIVE); BENZODIAZEPINES SCREEN,URINE NEGATIVE (NEGATIVE); CANNABINOID SCREEN,URINE POSITIVE (NEGATIVE); COCAINE SCREEN,URINE NEGATIVE (NEGATIVE); OPIATE SCREEN,URINE NEGATIVE (NEGATIVE); PHENCYCLIDINE SCREEN,URINE NEGATIVE (NEGATIVE)
[2021-02-16 20:00] VITALS: BP 132/75
[2021-02-16] MEDS: FAMOTIDINE 20MG VIAL IV SCH (20:02)
[2021-02-16] MEDS ORDERED: LINA145C PO (20:32)
[2021-02-16] MEDS ORDERED: PRAV10TA39 PO (20:32)
[2021-02-16 23:56] VITALS: BP 124/75
[2021-02-17] MEDS: FUROSEMIDE 40MG VIAL IV SCH ×2 (01:14→13:30)
[2021-02-17 04:00] VITALS: BP 119/71
[2021-02-17 05:32] LABS: BASOPHILS % (AUTO) 0.5 % (0.0-5.0); EOSINOPHILS % (AUTO) 8.1 % (0.0-8.0); HEMATOCRIT 35.2 % (42-54); LYMPHOCYTES % (AUTO) 30.5 % (21.0-51.0); MEAN CORPUSCULAR HEMOGLOBIN 33.2 pg (27.0-33.0); MEAN CORPUSCULAR HGB CONC 34.1 g/dL (32.0-36.0); MEAN CORPUSCULAR VOLUME 97.5 fL (79-99); MONOCYTES % (AUTO) 9.9 % (3.0-13.0); NEUTROPHILS % (AUTO) 50.7 % (40.0-77.0); PLATELET COUNT (AUTO) 51 K/uL (130-400); RED BLOOD CELL COUNT(AUTO) 3.61 MIL/uL (4.50-6.20); WHITE BLOOD COUNT (AUTO) 3.8 K/uL (4.8-10.8)
[2021-02-17 05:51] LABS: ALBUMIN 2.9 g/dL (3.5-5.0); BILIRUBIN,TOTAL 1.9 mg/dL (0.2-1.0); POTASSIUM 3.5 mmol/L (3.5-5.1); TOTAL PROTEIN, SERUM 7.5 g/dL (6.0-8.3)
[2021-02-17 08:00] VITALS: BP 134/71
[2021-02-17] MEDS ORDERED: FOLIC ACID 1 MG TABLET PO SCH (09:00)
[2021-02-17] MEDS ORDERED: ENOXAPARIN SODIUM 30 MG/0.3 ML SQ SCH (09:00)
[2021-02-17] MEDS ORDERED: MULTIVITAMIN TABLET PO SCH (09:00)
[2021-02-17] MEDS: FAMOTIDINE 20MG VIAL IV SCH (09:40)
[2021-02-17] MEDS: LACTULOSE 20 GM/30 ML UDCUP PO SCH ×2 (09:40→13:30)
[2021-02-17 12:00] VITALS: BP 132/73
[2021-02-17] MEDS: CEFTRIAXONE 1G VIAL IVP SCH (13:29)
== END 2021-02-17 15:03 | disposition home or self-care (01) ==
LOC: EDH 09:38 → INTOOBSV 09:39 → EDHIP 09:39 → 3BH 18:32
PROVIDERS: ADMIT Hospitalist; ATTEND Hospitalist
DX: R10.11 Right upper quadrant pain (principal); K70.31 Alcoholic cirrhosis of liver with ascites; D72.819 Decreased white blood cell count, unspecified; D69.6 Thrombocytopenia, unspecified; I10 Essential (primary) hypertension; R00.1 Bradycardia, unspecified; F17.200 Nicotine dependence, unspecified, uncomplicated; F10.10 Alcohol abuse, uncomplicated; Z91.19 Patient's noncompliance with other medical treatment and regimen; Z79.02 Long term (current) use of antithrombotics/antiplatelets; Z79.899 Other long term (current) drug therapy
CPT/HCPCS: 36415 ×2; 80053 ×2; 80305; 81001; 82140 ×2; 82150; 83605; 83690; 83735 ×2; 84100; 85025 ×2; 85610; 85730; 87040 ×2; 93005; 96374; 96375; 96376; 99284; G0378 ×26; J0696 ×2; J1940 ×3; J2060; J3490 ×2

== ENCOUNTER → 2021-04-10 | Outpatient (CLI) | payer MEDICAID ==
[~2021-04-10] MED LIST changes: -CHOL100046 PO; -CITA-107 PO; -DICY10CA13 PO; +LINA145C PO; -MIDO10TA PO; +PRAV10TA39 PO
== END | disposition home or self-care (01) ==
LOC: RAH 11:51
PROVIDERS: ATTEND Internal Medicine
DX: M25.522 Pain in left elbow (principal)
CPT/HCPCS: 73070

== ENCOUNTER 2021-05-13 10:23 | Observation (INO) | payer MEDICAID ==
[~2021-05-13] VITALS: Ht 165.1 cm; Wt 61.2 kg
[2021-05-13 10:24] VITALS: BP 117/74
[2021-05-13 10:51] LABS: BASOPHILS % (AUTO) 1.2 % (0.0-5.0); EOSINOPHILS % (AUTO) 2.1 % (0.0-8.0); LYMPHOCYTES % (AUTO) 28.4 % (21.0-51.0); MEAN CORPUSCULAR HEMOGLOBIN 34.1 pg (27.0-33.0); MEAN CORPUSCULAR HGB CONC 34.3 g/dL (32.0-36.0); MEAN CORPUSCULAR VOLUME 99.4 fL (79-99); MONOCYTES % (AUTO) 9.7 % (3.0-13.0); NEUTROPHILS % (AUTO) 58.6 % (40.0-77.0); PLATELET COUNT (AUTO) 63 K/uL (130-400); RED BLOOD CELL COUNT(AUTO) 3.52 MIL/uL (4.50-6.20); RED CELL DISTRIBUTION WIDTH 14.5 % (11.0-15.5); WHITE BLOOD COUNT (AUTO) 3.4 K/uL (4.8-10.8)
[2021-05-13 10:56] LABS: CARBON DIOXIDE 25 mmol/L (21-32); CHLORIDE 103 mmol/L (101-111); CREATININE 0.8 mg/dL (0.5-1.5); GLOMERULAR FILTR. RATE CALC 106 mL/min (>60); GLUCOSE,RANDOM 114 mg/dL (70-105); POTASSIUM 3.8 mmol/L (3.5-5.1); SODIUM SERUM 139 mmol/L (136-145); UREA NITROGEN, BLOOD 5 mg/dL (7-18)
[2021-05-13 11:06] LABS: B-TYPE NATRIURETIC PEPTIDE 7 pg/mL (0-100)
[2021-05-13 11:21] LABS: ALANINE AMINOTRANSFERASE 70 U/L (12-78); ALBUMIN 2.8 g/dL (3.5-5.0); ASPARTATE AMINOTRANSFERASE 160 U/L (10-37); BILIRUBIN,TOTAL 1.3 mg/dL (0.2-1.0); MYOGLOBIN 274 ng/mL (10-92); TOTAL PROTEIN, SERUM 7.4 g/dL (6.0-8.3); TROPONIN I < 0.04 ng/mL (0.00-0.06)
[2021-05-13 11:22] LABS: CREATINE KINASE, TOTAL 1285 U/L (21-232)
[2021-05-13 11:31] LABS: INR 1.12 (0.85-1.15); PROTHROMBIN TIME 12.1 SEC (9.6-11.6)
[2021-05-13 11:41] VITALS: BP 134/73
[2021-05-13 11:41] LABS: AMPHET/METH SCREEN,URINE NEGATIVE (NEGATIVE); BARBITURATE SCREEN, URINE NEGATIVE (NEGATIVE); BENZODIAZEPINES SCREEN,URINE NEGATIVE (NEGATIVE); CANNABINOID SCREEN,URINE POSITIVE (NEGATIVE); COCAINE SCREEN,URINE NEGATIVE (NEGATIVE); OPIATE SCREEN,URINE NEGATIVE (NEGATIVE); PHENCYCLIDINE SCREEN,URINE NEGATIVE (NEGATIVE)
[2021-05-13] MEDS ORDERED: NITROGLYCERIN 1GM OINT 1 INCH/1GM TD ONE ×2 (13:30→14:45)
[2021-05-13] MEDS ORDERED: PHARMACY COMMUNICATION MISC PRN (14:30)
[2021-05-13] MEDS ORDERED: LORAZEPAM 2 MG/ML 1 ML VIAL IVP PRN (14:30)
[2021-05-13] MEDS ORDERED: ONDANSETRON 4MG INJ IV PRN (14:30)
[2021-05-13] MEDS ORDERED: CHLORDIAZEPOXIDE HCL 25 MG CAP PO PRN (14:30)
[2021-05-13] MEDS ORDERED: ACETAMINOPHEN 325 MG TAB PO PRN (14:30)
[2021-05-13 14:43] LABS: INR 1.1 (0.85-1.15); PROTHROMBIN TIME 11.9 SEC (9.6-11.6)
[2021-05-13 14:44] LABS: PARTIAL THROMBOPLASTIN TIME 25.9 SEC (26.3-35.5)
[2021-05-13 14:48] LABS: CRP QUANTITATIVE 5.6 mg/L (0.00-9.0)
[2021-05-13] MEDS: 0.9%NACL 1000ML 1,000 ML IV SCH ×2 (15:43→23:11)
[2021-05-13 16:01] VITALS: BP 130/76
[2021-05-13 18:28] VITALS: BP 143/75
[2021-05-13] MEDS ORDERED: FOLI0.8T3 PO (18:32)
[2021-05-13 21:40] VITALS: BP 123/75
[2021-05-13] MEDS: FAMOTIDINE 20MG VIAL IV SCH (21:50)
[2021-05-13] MEDS: METOPROLOL TARTRATE 25 MG TAB PO SCH (21:51)
[2021-05-13 22:10] VITALS: BP 105/62
[2021-05-14 03:20] LABS: BASOPHILS % (AUTO) 0.9 % (0.0-5.0); CARBON DIOXIDE 26 mmol/L (21-32); CHLORIDE 108 mmol/L (101-111); CREATININE 0.7 mg/dL (0.5-1.5); EOSINOPHILS % (AUTO) 5.9 % (0.0-8.0); GLOMERULAR FILTR. RATE CALC 124 mL/min (>60); GLUCOSE,RANDOM 95 mg/dL (70-105); HEMATOCRIT 34.4 % (42-54); LYMPHOCYTES % (AUTO) 26.5 % (21.0-51.0); MEAN CORPUSCULAR HEMOGLOBIN 34.1 pg (27.0-33.0); MEAN CORPUSCULAR HGB CONC 34.3 g/dL (32.0-36.0); MEAN CORPUSCULAR VOLUME 99.4 fL (79-99); NEUTROPHILS % (AUTO) 56.7 % (40.0-77.0); PLATELET COUNT (AUTO) 47 K/uL (130-400); POTASSIUM 4.1 mmol/L (3.5-5.1); RED BLOOD CELL COUNT(AUTO) 3.46 MIL/uL (4.50-6.20); RED CELL DISTRIBUTION WIDTH 14.4 % (11.0-15.5); SODIUM SERUM 143 mmol/L (136-145); UREA NITROGEN, BLOOD 5 mg/dL (7-18); WHITE BLOOD COUNT (AUTO) 3.2 K/uL (4.8-10.8)
[2021-05-14 03:44] LABS: ALANINE AMINOTRANSFERASE 73 U/L (12-78); ALBUMIN 2.7 g/dL (3.5-5.0); ASPARTATE AMINOTRANSFERASE 177 U/L (10-37); BILIRUBIN,TOTAL 2.3 mg/dL (0.2-1.0); MYOGLOBIN 178 ng/mL (10-92); TROPONIN I < 0.04 ng/mL (0.00-0.06)
[2021-05-14 03:51] LABS: CREATINE KINASE, TOTAL 1303 U/L (21-232)
[2021-05-14 04:05] VITALS: BP 149/73
[2021-05-14] MEDS: ACETAMINOPHEN 325 MG TAB PO PRN (05:07)
[2021-05-14 07:00] VITALS: BP 147/84
[2021-05-14] MEDS: Vitamin B Complex/Vit C/Folic Acid PO SCH (07:56)
[2021-05-14] MEDS: MULTIVITAMIN TABLET PO SCH (07:56)
[2021-05-14] MEDS: THIAMINE HCL 100 MG TABLET PO SCH (07:56)
[2021-05-14] MEDS: FAMOTIDINE 20MG VIAL IV SCH ×2 (07:56→19:56)
[2021-05-14] MEDS: 0.9%NACL 1000ML 1,000 ML IV SCH ×2 (08:45→19:56)
[2021-05-14] MEDS: METOPROLOL TARTRATE 25 MG TAB PO SCH (08:47)
[2021-05-14 15:00] VITALS: BP 148/84
[2021-05-14] MEDS: LEVETIRACETAM 500 MG TABLET PO SCH (19:56)
[2021-05-14 20:29] VITALS: BP 138/80
[2021-05-14] MEDS: LACTULOSE 20 GM/30 ML UDCUP PO PRN (21:29)
[2021-05-14 23:18] VITALS: BP 126/78
[2021-05-15] MEDS: 0.9%NACL 1000ML 1,000 ML IV SCH ×2 (02:14→05:45)
[2021-05-15 04:35] VITALS: BP 150/70
[2021-05-15] MEDS: ACETAMINOPHEN 325 MG TAB PO PRN (04:48)
[2021-05-15 04:49] LABS: BASOPHILS % (AUTO) 0.7 % (0.0-5.0); EOSINOPHILS % (AUTO) 6.9 % (0.0-8.0); HEMATOCRIT 33.7 % (42-54); LYMPHOCYTES % (AUTO) 29.5 % (21.0-51.0); MEAN CORPUSCULAR HGB CONC 34.7 g/dL (32.0-36.0); MONOCYTES % (AUTO) 9.5 % (3.0-13.0); NEUTROPHILS % (AUTO) 53.4 % (40.0-77.0); PLATELET COUNT (AUTO) 38 K/uL (130-400); RED BLOOD CELL COUNT(AUTO) 3.44 MIL/uL (4.50-6.20); RED CELL DISTRIBUTION WIDTH 13.8 % (11.0-15.5); WHITE BLOOD COUNT (AUTO) 3.1 K/uL (4.8-10.8)
[2021-05-15] MEDS: LACTULOSE 20 GM/30 ML UDCUP PO PRN (04:51)
[2021-05-15 05:16] LABS: ALBUMIN 2.6 g/dL (3.5-5.0); BILIRUBIN,TOTAL 2.8 mg/dL (0.2-1.0); CREATININE 0.8 mg/dL (0.5-1.5); POTASSIUM 4.2 mmol/L (3.5-5.1)
[2021-05-15 08:00] VITALS: BP_SYST 151; BP_SYST 155; BP_DIAS 64; BP_DIAS 74
[2021-05-15] MEDS: MULTIVITAMIN TABLET PO SCH (10:33)
[2021-05-15] MEDS: Vitamin B Complex/Vit C/Folic Acid PO SCH (10:34)
[2021-05-15] MEDS: LEVETIRACETAM 500 MG TABLET PO SCH (10:35)
[2021-05-15] MEDS: THIAMINE HCL 100 MG TABLET PO SCH (10:36)
[2021-05-15] MEDS: FAMOTIDINE 20MG VIAL IV SCH (10:43)
[2021-05-15 11:00] VITALS: BP 133/76
[2021-05-15 16:00] VITALS: BP 149/76
== END 2021-05-15 16:40 | disposition home or self-care (01) ==
LOC: EDH 10:23 → INTOOBSV 10:24 → EDHIP 10:24 → 3AH 20:13
PROVIDERS: ADMIT Hospitalist; ATTEND Hospitalist
DX: I20.0 Unstable angina (principal); I10 Essential (primary) hypertension; M62.82 Rhabdomyolysis; D69.6 Thrombocytopenia, unspecified; K70.30 Alcoholic cirrhosis of liver without ascites; F10.10 Alcohol abuse, uncomplicated; J44.9 Chronic obstructive pulmonary disease, unspecified; Z79.899 Other long term (current) drug therapy; Z98.890 Other specified postprocedural states; Z86.73 Personal history of transient ischemic attack (TIA), and cerebral infarction without residual deficits
CPT/HCPCS: 36415 ×3; 71045; 80053 ×3; 80305; 82140 ×2; 82550 ×3; 83735; 83874 ×2; 83880; 84484 ×4; 85025 ×3; 85610 ×2; 85651; 85730; 86140; 93005 ×4; 96361 ×5; 96374; 96376 ×2; 99285; G0378 ×51; J7030; S0028 ×4; J3490

== ENCOUNTER → 2021-05-17 | Outpatient (CLI) | payer MEDICAID ==
[~2021-05-17] MED LIST changes: +FOLI0.8T3 PO
== END | disposition home or self-care (01) ==
LOC: RAH 07:53
PROVIDERS: ATTEND Internal Medicine Gastroenterology
DX: R18.8 Other ascites (principal)
CPT/HCPCS: 76700; 93975

== ENCOUNTER → 2023-04-25 | Outpatient (CLI) | payer MEDICAID ==
[~2023-04-25] MED LIST changes: +ALBUMIN (HUMAN) 25% 200 ML IV SCH; +FURO40TA7 PO; -PRAV10TA39 PO; +SPIR50TA PO; +THIA100T91 PO; -VITA1CAP85 PO
[2023-04-25 09:16] LABS: BASOPHILS % (AUTO) 1.3 % (0.0-5.0); EOSINOPHILS % (AUTO) 15.3 % (0.0-8.0); HEMATOCRIT 34.3 % (42-54); LYMPHOCYTES % (AUTO) 28.7 % (21.0-51.0); MEAN CORPUSCULAR HEMOGLOBIN 34.8 pg (27.0-33.0); MEAN CORPUSCULAR HGB CONC 31.8 g/dL (32.0-36.0); MEAN CORPUSCULAR VOLUME 109.6 fL (79-99); MONOCYTES % (AUTO) 11.3 % (3.0-13.0); NEUTROPHILS % (AUTO) 43.1 % (40.0-77.0); PLATELET COUNT (AUTO) 43 K/uL (130-400); RED BLOOD CELL COUNT(AUTO) 3.13 MIL/uL (4.50-6.20); RED CELL DISTRIBUTION WIDTH 14.2 % (11.0-15.5)
[2023-04-25 09:26] LABS: INR 1.41 (0.85-1.15); PROTHROMBIN TIME 15.1 SEC (9.6-11.6)
[2023-04-25 09:27] LABS: PARTIAL THROMBOPLASTIN TIME 30.7 SEC (26.3-35.5)
[2023-04-25 09:30] LABS: ALBUMIN 2.2 g/dL (3.5-5.0); CREATININE 0.9 mg/dL (0.5-1.5); POTASSIUM 3.5 mmol/L (3.5-5.1); TOTAL PROTEIN, SERUM 6.8 g/dL (6.0-8.3)
[2023-04-25 11:01] LABS: BAND NEUTROPHILS % (MANUAL) 1 % (0-2); BASOPHILS % (MANUAL) 2 % (0-2); EOSINOPHILS % (MANUAL) 14 % (1-6); LYMPHOCYTES % (MANUAL) 25 % (22-44); MAN.DIFF COMMENT-IMPRESSION MANUAL DIFFERENTIAL; MONOCYTES % (MANUAL) 4 % (2-9); PLATELET MORPHOLOGY COMMENT MARKED DECREASE; REACTIVE LYMPHOCYTES 1 % (0-0); SEGMENTED NEUTROPHILS % 53 % (40-70)
[2023-04-25 12:01] LABS: SPECIMENTYPE,BODY FLUID ASCITES; TOTAL VOLUME,BODY FLUID 1500 mL
[2023-04-25 12:32] LABS: BODY FLUID RBC 2442 /cu. mm.; BODY FLUID WBC 30 /cu. mm.
[2023-04-25 12:45] LABS: COLOR,BODY FLUID YELLOW (LT YELLOW)
[2023-04-25 12:46] LABS: APPEARANCE BODY FLUID SLIGHTLY CLOUDY (CLEAR)
[2023-04-25 12:53] LABS: ALBUMIN,BODY FLUID < 0.6 g/dL
[2023-04-25 13:09] LABS: BF EOSINOPHIL 1 %; BF LYMPHOCYTE 47 %; BF MESOTHELIAL 28 %; BF MONOCYTE 17 %
== END | disposition home or self-care (01) ==
LOC: RAH 08:09
PROVIDERS: ATTEND Internal Medicine Gastroenterology
DX: K70.31 Alcoholic cirrhosis of liver with ascites (principal); D61.818 Other pancytopenia; I10 Essential (primary) hypertension; R16.1 Splenomegaly, not elsewhere classified; Z79.01 Long term (current) use of anticoagulants; Z87.891 Personal history of nicotine dependence; Z98.890 Other specified postprocedural states; Z86.73 Personal history of transient ischemic attack (TIA), and cerebral infarction without residual deficits; Z79.899 Other long term (current) drug therapy
CPT/HCPCS: 49083; 84157; 80053; 85025; 89051; 85610; 85730; 87071; 87076; 87205; 82042; 36415; 88108; 88305; C1729; P9046

== ENCOUNTER → 2023-04-27 | Outpatient (CLI) | payer MEDICAID ==
[~2023-04-27] MED LIST changes: -ALBUMIN (HUMAN) 25% 200 ML IV SCH
== END | disposition home or self-care (01) ==
LOC: SHCH 07:32
PROVIDERS: ATTEND Internal Medicine Cardiovascular Disease
DX: I08.2 Rheumatic disorders of both aortic and tricuspid valves (principal); I27.20 Pulmonary hypertension, unspecified
CPT/HCPCS: 93306

== ENCOUNTER → 2023-05-08 | Outpatient (CLI) | payer MEDICAID ==
[~2023-05-08] MED LIST changes: +ALBUMIN (HUMAN) 25% 200 ML IV SCH
[2023-05-08 12:40] LABS: BODY FLUID RBC 182 /cu. mm.; BODY FLUID WBC 81 /cu. mm.
[2023-05-08 12:58] LABS: APPEARANCE BODY FLUID CLEAR (CLEAR); COLOR,BODY FLUID YELLOW (LT YELLOW); SPECIMENTYPE,BODY FLUID ASCITES
[2023-05-08 12:59] LABS: TOTAL VOLUME,BODY FLUID 2500 mL
[2023-05-08 13:13] LABS: ALBUMIN,BODY FLUID < 0.6 g/dL
[2023-05-08 13:34] LABS: BF BASOPHIL 1 %; BF LYMPHOCYTE 51 %; BF MESOTHELIAL 34 %; BF MONOCYTE 13 %
== END | disposition home or self-care (01) ==
LOC: RAH 07:58
PROVIDERS: ATTEND Internal Medicine Gastroenterology
DX: R18.8 Other ascites (principal); I10 Essential (primary) hypertension; F15.90 Other stimulant use, unspecified, uncomplicated; F12.90 Cannabis use, unspecified, uncomplicated; Z79.899 Other long term (current) drug therapy
CPT/HCPCS: 49083; 82042; 84157; 87071; 87076; 87205; 88108; 88305; 89051; C1729; P9046

== ENCOUNTER → 2023-06-05 | Outpatient (CLI) | payer MEDICAID | END | disposition home or self-care (01) | LOC: RAH 08:00 | PROVIDERS: ATTEND Internal Medicine Gastroenterology | DX: R18.8 Other ascites (principal); K74.60 Unspecified cirrhosis of liver | CPT/HCPCS: 76705; P9046 ==

== ENCOUNTER → 2023-06-25 | Outpatient (CLI) | payer MEDICAID ==
[2023-06-25 09:22] LABS: BASOPHILS # (AUTO) 0.03 K/uL (0.00-0.20); BASOPHILS % (AUTO) 1.1 % (0.0-5.0); EOSINOPHILS # (AUTO) 0.44 K/uL (0.00-0.70); EOSINOPHILS % (AUTO) 16.1 % (0.0-8.0); HEMATOCRIT 33.2 % (42-54); LYMPHOCYTES # (AUTO) 0.7 K/uL (1.0-4.8); LYMPHOCYTES % (AUTO) 25.5 % (21.0-51.0); MEAN CORPUSCULAR HEMOGLOBIN 35.1 pg (27.0-33.0); MEAN CORPUSCULAR HGB CONC 33.1 g/dL (32.0-36.0); MEAN CORPUSCULAR VOLUME 106.1 fL (79-99); MONOCYTES # (AUTO) 0.3 K/uL (0.1-1.0); MONOCYTES % (AUTO) 10.2 % (3.0-13.0); NEUTROPHILS # (AUTO) 1.3 K/uL (1.8-7.7); NEUTROPHILS % (AUTO) 47.1 % (40.0-77.0); PLATELET COUNT (AUTO) 35 K/uL (130-400); RED BLOOD CELL COUNT(AUTO) 3.13 MIL/uL (4.50-6.20); RED CELL DISTRIBUTION WIDTH 17.2 % (11.0-15.5); WHITE BLOOD COUNT (AUTO) 2.7 K/uL (4.8-10.8)
[2023-06-25 09:35] LABS: ALBUMIN 2.2 g/dL (3.5-5.0); BILIRUBIN,TOTAL 6.1 mg/dL (0.2-1.0); CREATININE 0.9 mg/dL (0.5-1.5); POTASSIUM 3.5 mmol/L (3.5-5.1); TOTAL PROTEIN, SERUM 6.7 g/dL (6.0-8.3)
[2023-06-25 09:46] LABS: INR 1.33 (0.85-1.15); PROTHROMBIN TIME 15.1 SEC (9.6-11.6)
[2023-06-25 09:47] LABS: PARTIAL THROMBOPLASTIN TIME 30.4 SEC (26.3-35.5)
[2023-06-25 10:28] LABS: EOSINOPHILS % (MANUAL) 21 % (1-6); LYMPHOCYTES % (MANUAL) 20 % (22-44); MAN.DIFF COMMENT-IMPRESSION MANUAL DIFFERENTIAL; MONOCYTES % (MANUAL) 8 % (2-9); PLATELET MORPHOLOGY COMMENT ADEQUATE; SEGMENTED NEUTROPHILS % 51 % (40-70); TOTAL CELLS COUNTED 100
[2023-06-25 11:15] LABS: TOTAL PROTEIN,BODY FLUID < 2.0 g/dL
[2023-06-25 11:16] LABS: ALBUMIN,BODY FLUID < 0.6 g/dL
[2023-06-25 12:02] LABS: APPEARANCE BODY FLUID CLEAR (CLEAR); COLOR,BODY FLUID YELLOW (LT YELLOW); SPECIMENTYPE,BODY FLUID ASCITES; TOTAL VOLUME,BODY FLUID 1600 mL
[2023-06-25 12:21] LABS: BODY FLUID RBC 510 /cu. mm.; BODY FLUID WBC 40 /cu. mm.
[2023-06-25 13:44] LABS: BF BASOPHIL 1 %; BF EOSINOPHIL 6 %; BF LYMPHOCYTE 54 %; BF MESOTHELIAL 23 %; BF MONOCYTE 16 %; BF TOTAL CELLS COUNTED 100
== END | disposition home or self-care (01) ==
LOC: RAH 07:57
PROVIDERS: ATTEND Internal Medicine Gastroenterology
DX: R18.8 Other ascites (principal); K74.69 Other cirrhosis of liver; K21.9 Gastro-esophageal reflux disease without esophagitis; B18.2 Chronic viral hepatitis C; I85.00 Esophageal varices without bleeding; K59.04 Chronic idiopathic constipation; K42.9 Umbilical hernia without obstruction or gangrene; R06.02 Shortness of breath; Z79.01 Long term (current) use of anticoagulants; Z86.010 Personal history of colon polyps; Z86.73 Personal history of transient ischemic attack (TIA), and cerebral infarction without residual deficits; Z98.890 Other specified postprocedural states; Z87.891 Personal history of nicotine dependence; Z72.89 Other problems related to lifestyle
CPT/HCPCS: 49083; 84157; 80053; 85025; 89051; 85610; 85730; 87071; 87076; 87205; 82042; 36415; 88108; C1729

== ENCOUNTER → 2023-07-12 | Outpatient (CLI) | payer MEDICAID ==
[~2023-07-12] MED LIST changes: +ALBUMIN (HUMAN) 25% 200 ML IV ONE; -ALBUMIN (HUMAN) 25% 200 ML IV SCH
[2023-07-12 09:15] LABS: BASOPHILS # (AUTO) 0.03 K/uL (0.00-0.20); BASOPHILS % (AUTO) 0.8 % (0.0-5.0); EOSINOPHILS # (AUTO) 0.36 K/uL (0.00-0.70); EOSINOPHILS % (AUTO) 9.9 % (0.0-8.0); HEMATOCRIT 37.2 % (42-54); LYMPHOCYTES # (AUTO) 0.8 K/uL (1.0-4.8); LYMPHOCYTES % (AUTO) 20.8 % (21.0-51.0); MEAN CORPUSCULAR HEMOGLOBIN 34.9 pg (27.0-33.0); MEAN CORPUSCULAR HGB CONC 31.7 g/dL (32.0-36.0); MEAN CORPUSCULAR VOLUME 110.1 fL (79-99); MONOCYTES # (AUTO) 0.4 K/uL (0.1-1.0); MONOCYTES % (AUTO) 9.6 % (3.0-13.0); NEUTROPHILS # (AUTO) 2.2 K/uL (1.8-7.7); NEUTROPHILS % (AUTO) 58.9 % (40.0-77.0); PLATELET COUNT (AUTO) 42 K/uL (130-400); RED BLOOD CELL COUNT(AUTO) 3.38 MIL/uL (4.50-6.20); RED CELL DISTRIBUTION WIDTH 16.1 % (11.0-15.5); WHITE BLOOD COUNT (AUTO) 3.7 K/uL (4.8-10.8)
[2023-07-12 09:24] LABS: INR 1.35 (0.85-1.15); PROTHROMBIN TIME 15.4 SEC (9.6-11.6)
[2023-07-12 09:25] LABS: PARTIAL THROMBOPLASTIN TIME 30.7 SEC (26.3-35.5)
[2023-07-12 09:29] LABS: ALBUMIN 2.5 g/dL (3.5-5.0); BILIRUBIN,TOTAL 12.6 mg/dL (0.2-1.0); CREATININE 0.9 mg/dL (0.5-1.5); POTASSIUM 4.7 mmol/L (3.5-5.1); TOTAL PROTEIN, SERUM 7.1 g/dL (6.0-8.3)
[2023-07-12 09:50] LABS: PLATELET MORPHOLOGY COMMENT DECREASED
[2023-07-12 14:05] LABS: BODY FLUID RBC 108 /cu. mm.
[2023-07-12 14:09] LABS: BODY FLUID WBC 207 /cu. mm.
[2023-07-12 14:20] LABS: ALBUMIN,BODY FLUID < 0.6 g/dL; TOTAL PROTEIN,BODY FLUID < 2.0 g/dL
[2023-07-12 15:19] LABS: SPECIMENTYPE,BODY FLUID ASCITES
[2023-07-12 15:20] LABS: APPEARANCE BODY FLUID CLEAR (CLEAR); COLOR,BODY FLUID YELLOW (LT YELLOW); TOTAL VOLUME,BODY FLUID 1000 mL
[2023-07-12 15:52] LABS: BF LYMPHOCYTE 29 %; BF MACROPHAGE 26; BF MESOTHELIAL 34 %; BF MONOCYTE 8 %; BF OTHER CELLS 2; BF TOTAL CELLS COUNTED 100
== END | disposition home or self-care (01) ==
LOC: RAH 08:32
PROVIDERS: ATTEND Internal Medicine Gastroenterology
DX: R18.8 Other ascites (principal); K74.69 Other cirrhosis of liver; K21.9 Gastro-esophageal reflux disease without esophagitis; I85.00 Esophageal varices without bleeding; R06.02 Shortness of breath; K59.04 Chronic idiopathic constipation; K42.9 Umbilical hernia without obstruction or gangrene; Z79.01 Long term (current) use of anticoagulants; Z79.899 Other long term (current) drug therapy; Z86.73 Personal history of transient ischemic attack (TIA), and cerebral infarction without residual deficits; Z86.010 Personal history of colon polyps; Z98.890 Other specified postprocedural states; Z87.891 Personal history of nicotine dependence; Z72.89 Other problems related to lifestyle; Z86.19 Personal history of other infectious and parasitic diseases
CPT/HCPCS: 49083; 84157; 80053; 85025; 89051; 85610; 85730; 87071; 87205; 82042; 86038; 36415; 88108; P9046; C1729

== ENCOUNTER → 2023-07-17 | Outpatient (CLI) | payer MEDICAID ==
[~2023-07-17] MED LIST changes: -ALBUMIN (HUMAN) 25% 200 ML IV ONE; +GADOTERATE MEGLUMINE 10 MMOL/20 ML VIAL IV ONE
== END | disposition home or self-care (01) ==
LOC: RAH 08:46
PROVIDERS: ATTEND Internal Medicine Gastroenterology
DX: K74.60 Unspecified cirrhosis of liver (principal); R94.5 Abnormal results of liver function studies; R18.8 Other ascites
CPT/HCPCS: 74183; A9575; S8037

== ENCOUNTER → 2023-07-23 | Outpatient (CLI) | payer MEDICAID ==
[~2023-07-23] MED LIST changes: -GADOTERATE MEGLUMINE 10 MMOL/20 ML VIAL IV ONE
== END | disposition home or self-care (01) ==
LOC: RAH 08:56
PROVIDERS: ATTEND Internal Medicine Gastroenterology
DX: R18.8 Other ascites (principal)
CPT/HCPCS: 76705

== ENCOUNTER 2023-08-06 01:05 | Emergency (ER) | payer MEDICAID ==
[2023-08-06 01:30] LABS: BASOPHILS # (AUTO) 0.05 K/uL (0.00-0.20); BASOPHILS % (AUTO) 1.5 % (0.0-5.0); EOSINOPHILS # (AUTO) 0.43 K/uL (0.00-0.70); EOSINOPHILS % (AUTO) 13.2 % (0.0-8.0); HEMATOCRIT 32.5 % (42-54); IMMATURE GRANULOCYTE ABSOLUTE 0.01 K/uL (0-1); LYMPHOCYTES # (AUTO) 0.9 K/uL (1.0-4.8); LYMPHOCYTES % (AUTO) 26.5 % (21.0-51.0); MEAN CORPUSCULAR HEMOGLOBIN 35.2 pg (27.0-33.0); MEAN CORPUSCULAR HGB CONC 32.6 g/dL (32.0-36.0); MONOCYTES # (AUTO) 0.4 K/uL (0.1-1.0); MONOCYTES % (AUTO) 13.2 % (3.0-13.0); NEUTROPHILS # (AUTO) 1.5 K/uL (1.8-7.7); NEUTROPHILS % (AUTO) 45.3 % (40.0-77.0); PLATELET COUNT (AUTO) 41 K/uL (130-400); RED BLOOD CELL COUNT(AUTO) 3.01 MIL/uL (4.50-6.20); RED CELL DISTRIBUTION WIDTH 16.2 % (11.0-15.5); WHITE BLOOD COUNT (AUTO) 3.3 K/uL (4.8-10.8)
[2023-08-06 01:45] LABS: POTASSIUM 3.9 mmol/L (3.5-5.1)
[2023-08-06 01:47] LABS: INR 1.26 (0.85-1.15); PROTHROMBIN TIME 14.4 SEC (9.6-11.6)
[2023-08-06 01:49] LABS: PARTIAL THROMBOPLASTIN TIME 30.8 SEC (26.3-35.5)
[2023-08-06 01:51] LABS: ALBUMIN 2.3 g/dL (3.5-5.0); BILIRUBIN,TOTAL 5.5 mg/dL (0.2-1.0); TOTAL PROTEIN, SERUM 6.8 g/dL (6.0-8.3)
[2023-08-06] MEDS ORDERED: LIDOP TP (02:38)
[2023-08-06] MEDS ORDERED: LIDOCAINE 4% ADH..PATCH TP ONE (03:00)
[2023-08-06 03:06] VITALS: BP 162/77; PULSE 66; RESP 17; O2SAT 98
[2023-08-12] MEDS ORDERED: SPIR25TA6 PO (01:28)
[2023-08-12] MEDS ORDERED: FAMO20TA8 PO (01:29)
[2023-08-12] MEDS ORDERED: HYDR-3830 PO (01:29)
[2023-08-12] MEDS ORDERED: MIDO2.5T PO (01:30)
[2023-08-12] MEDS ORDERED: RIFA550T PO (01:30)
[2023-08-12] MEDS ORDERED: ONDA4TAB10 PO (01:31)
== END 2023-08-06 03:07 | disposition home or self-care (01) ==
LOC: EDH 01:05
DX: K70.31 Alcoholic cirrhosis of liver with ascites (principal); R10.11 Right upper quadrant pain; Z60.2 Problems related to living alone
CPT/HCPCS: 36415; 76705; 80053; 82140; 83690; 85025; 85610; 85730

== ENCOUNTER 2023-08-16 03:47 | Emergency (ER) | payer MEDICAID ==
[~2023-08-16] VITALS: Ht 165.1 cm; Wt 64.9 kg
[~2023-08-16 03:47] MED LIST changes: +FAMO20TA8 PO; +HYDR-3830 PO; +LIDOP TP; +MIDO2.5T PO; +ONDA4TAB10 PO; +RIFA550T PO; +SPIR25TA6 PO; -SPIR50TA PO
[2023-08-16 04:11] LABS: BASOPHILS # (AUTO) 0.03 K/uL (0.00-0.20); BASOPHILS % (AUTO) 0.9 % (0.0-5.0); EOSINOPHILS # (AUTO) 0.32 K/uL (0.00-0.70); EOSINOPHILS % (AUTO) 9.1 % (0.0-8.0); HEMATOCRIT 31.4 % (42-54); IMMATURE GRANULOCYTE ABSOLUTE 0.01 K/uL (0-1); LYMPHOCYTES # (AUTO) 1.1 K/uL (1.0-4.8); LYMPHOCYTES % (AUTO) 30.3 % (21.0-51.0); MEAN CORPUSCULAR HEMOGLOBIN 35.2 pg (27.0-33.0); MEAN CORPUSCULAR HGB CONC 32.5 g/dL (32.0-36.0); MEAN CORPUSCULAR VOLUME 108.3 fL (79-99); MONOCYTES # (AUTO) 0.4 K/uL (0.1-1.0); MONOCYTES % (AUTO) 11.7 % (3.0-13.0); NEUTROPHILS # (AUTO) 1.7 K/uL (1.8-7.7); NEUTROPHILS % (AUTO) 47.7 % (40.0-77.0); PLATELET COUNT (AUTO) 29 K/uL (130-400); RED CELL DISTRIBUTION WIDTH 17.1 % (11.0-15.5); WHITE BLOOD COUNT (AUTO) 3.5 K/uL (4.8-10.8)
[2023-08-16 04:28] LABS: CREATININE 0.9 mg/dL (0.5-1.5); POTASSIUM 4.1 mmol/L (3.5-5.1)
[2023-08-16 04:33] LABS: ALBUMIN 2.2 g/dL (3.5-5.0); BILIRUBIN,TOTAL 5.5 mg/dL (0.2-1.0); TOTAL PROTEIN, SERUM 6.2 g/dL (6.0-8.3)
[2023-08-16] MEDS ORDERED: MORPHINE 4 MG SYG ONE (04:50)
[2023-08-16] MEDS ORDERED: MORPHINE 4 MG SYG IVP ONE (05:00)
[2023-08-16 08:52] VITALS: BP 148/79; PULSE 80; RESP 18; O2SAT 98
== END 2023-08-16 09:01 | disposition home or self-care (01) ==
LOC: EDH 03:47
DX: R10.11 Right upper quadrant pain (principal); R18.8 Other ascites; I10 Essential (primary) hypertension; Z79.899 Other long term (current) drug therapy; Z98.890 Other specified postprocedural states
CPT/HCPCS: 99285; 96374; 76700; 84484; 80053; 83690; 85025; 36415; 93005; J2270

== ENCOUNTER 2023-08-18 02:15 | Emergency (ER) | payer MEDICAID ==
[~2023-08-18] VITALS: Ht 165.1 cm; Wt 64.9 kg
[2023-08-18] MEDS ORDERED: HYDROXYZINE 50MG VIAL 50 MG/ML VIAL IM SCH (03:00)
[2023-08-18 03:37] VITALS: BP 146/82; PULSE 88; RESP 16; O2SAT 97
== END 2023-08-18 03:44 | disposition home or self-care (01) ==
LOC: EDH 02:15
DX: G89.29 Other chronic pain (principal); R10.9 Unspecified abdominal pain; K70.31 Alcoholic cirrhosis of liver with ascites; I10 Essential (primary) hypertension; Z79.02 Long term (current) use of antithrombotics/antiplatelets; Z79.899 Other long term (current) drug therapy; Z95.810 Presence of automatic (implantable) cardiac defibrillator
CPT/HCPCS: 99283; 96372; J3410

== ENCOUNTER → 2023-08-20 | Outpatient (CLI) | payer MEDICAID ==
[~2023-08-20] MED LIST changes: +ALBUMIN (HUMAN) 25% 200 ML IV SCH
== END | disposition home or self-care (01) ==
LOC: RAH 09:05
PROVIDERS: ATTEND Internal Medicine Gastroenterology
DX: R18.8 Other ascites (principal)
CPT/HCPCS: 76705; P9046

== ENCOUNTER → 2023-09-04 | Outpatient (CLI) | payer MEDICAID ==
[~2023-09-04] MED LIST changes: -ALBUMIN (HUMAN) 25% 200 ML IV SCH
== END | disposition home or self-care (01) ==
LOC: RAH 10:00
PROVIDERS: ATTEND Internal Medicine Gastroenterology
DX: R18.8 Other ascites (principal)
CPT/HCPCS: 76705

== ENCOUNTER 2023-09-11 05:51 | Day surgery (SDC) | payer MEDICAID ==
[2023-09-10 11:50] VITALS: BP 106/66; PULSE 61; RESP 16
[~2023-09-11] VITALS: Ht 165.1 cm; Wt 64.2 kg
[2023-09-11] VITALS (9 sets, daily range): BP systolic 89–125; BP diastolic 50–71; PULSE 57–74; RESP 14–22
[~2023-09-11 05:51] MED LIST changes: +BISA-151 PO; +DICY20TA3 PO; -FURO40TA7 PO; -LINA145C PO; +LINA290C PO; +TRAM50TA4 PO
[2023-09-11] MEDS ORDERED: PROPOFOL 10 MG/ML 20ML VIAL IV ONE (08:24)
== END 2023-09-11 09:59 | disposition home or self-care (01) ==
LOC: DAH 05:51 → ENDO 05:51
PROVIDERS: ATTEND Internal Medicine Gastroenterology
DX: Z12.11 Encounter for screening for malignant neoplasm of colon (principal); K29.50 Unspecified chronic gastritis without bleeding; K29.00 Acute gastritis without bleeding; K74.69 Other cirrhosis of liver; I85.10 Secondary esophageal varices without bleeding; K76.6 Portal hypertension; K31.89 Other diseases of stomach and duodenum; R10.11 Right upper quadrant pain; K74.60 Unspecified cirrhosis of liver; D12.2 Benign neoplasm of ascending colon; K62.0 Anal polyp; K62.89 Other specified diseases of anus and rectum; K57.30 Diverticulosis of large intestine without perforation or abscess without bleeding; K82.9 Disease of gallbladder, unspecified; K21.9 Gastro-esophageal reflux disease without esophagitis; K59.09 Other constipation; K44.9 Diaphragmatic hernia without obstruction or gangrene; Z87.891 Personal history of nicotine dependence; Z72.89 Other problems related to lifestyle; Z82.49 Family history of ischemic heart disease and other diseases of the circulatory system; Z83.3 Family history of diabetes mellitus; Z80.3 Family history of malignant neoplasm of breast; Z79.1 Long term (current) use of non-steroidal anti-inflammatories (NSAID); Z98.890 Other specified postprocedural states
CPT/HCPCS: 43239; 45380; 45385; J3490; A4620; A4215 ×2; A4223; A7002; A4222; A4221; A4663; A4216; J7030; A4606; J2704

== ENCOUNTER → 2023-09-18 | Outpatient (CLI) | payer MEDICAID | END | disposition home or self-care (01) | LOC: RAH 09:15 | PROVIDERS: ATTEND Internal Medicine Gastroenterology | DX: R18.8 Other ascites (principal) | CPT/HCPCS: 76705 ==